=== PATIENT | female | born 1975 | race African-American/Black ===

== ENCOUNTER → 2017-10-02 | Outpatient (CLI) | payer OTHER | LOC: M LRY 19:09 | DX: S92.512A Displaced fracture of proximal phalanx of left lesser toe(s), initial encounter for closed fracture (principal) | CPT/HCPCS: 73630; G0463 ==

== ENCOUNTER → 2018-01-14 | Outpatient (CLI) | payer OTHER | LOC: M LRY 18:20 | DX: R05 Cough (principal); R06.02 Shortness of breath | CPT/HCPCS: 71046; G0463 ==

== ENCOUNTER 2019-01-08 13:32 | Emergency (ER) | payer OTHER ==
[~2019-01-08] VITALS: Ht 170.2 cm; Wt 140.9 kg
[~2019-01-08 13:32] MED LIST: IBUP80TA PO; MAPA500T17 PO; PRIL40CA PO
[2019-01-08] MEDS ORDERED: EXCETAB33 PO (13:38)
[2019-01-08] MEDS ORDERED: METHOCARBAMOL 750 MG TAB PO ONE (15:30)
--- NOTE | 2019-01-08 15:56 | REP ---
CT cervical spine: 01/08/2019. Indication: Neck pain. Comparison: None. Technique: Unenhanced axial CT images of the cervical spine were performed with coronal and sagittal reconstructions provided. Findings: The lower cervical spine is suboptimally evaluated secondary to quantum mottle artifact. There is no evidence of acute fracture, subluxation or dislocation. There is straightening of the cervical lordosis. The visualized lungs are clear. No areas of severe spinal canal narrowing are detected. The prevertebral and additional visualized soft tissues are unremarkable. Impression: No acute osseous injury of the cervical spine detected. Electronically Signed by Manny Aj DO 01/08/2019 03:47 P
[2019-01-08] MEDS ORDERED: ROBA750T4 PO (16:20)
[2019-01-08] MEDS ORDERED: NAPR-837 PO (16:20)
[2019-01-08 16:24] VITALS: BP 141/69
== END 2019-01-08 16:31 | disposition home or self-care (01) ==
LOC: M ED 13:32
DX: G44.209 Tension-type headache, unspecified, not intractable (principal); M54.12 Radiculopathy, cervical region; F17.210 Nicotine dependence, cigarettes, uncomplicated

== ENCOUNTER 2019-01-27 11:28 | Emergency (ER) | payer OTHER ==
[~2019-01-27] VITALS: Ht 170.2 cm; Wt 139.6 kg
[~2019-01-27 11:28] MED LIST changes: +EXCETAB33 PO; +NAPR-837 PO; +ROBA750T4 PO
[2019-01-27] MEDS ORDERED: METH750T2 (11:38)
[2019-01-27] MEDS ORDERED: BUSP5TA (11:38)
[2019-01-27] MEDS ORDERED: MELA3TAB41 (11:38)
[2019-01-27 14:07] LABS: BASO % 0.4 % (0.0-1.0); EOS # 0.1 10^3/uL (0.0-0.5); EOS % 1.2 % (0.0-3.0); HEMATOCRIT 42.5 % (36.0-47.0); HEMOGLOBIN 13.1 g/dl (12.0-15.5); LYMPH # 1.9 10^3/uL (1.5-5.0); LYMPH % 37.7 % (24.0-44.0); MEAN CORPUSCULAR HEMOGLOBIN 27.4 pg (27.0-33.0); MEAN CORPUSCULAR HGB CONC 30.8 g/dl (32.0-36.5); MEAN CORPUSCULAR VOLUME 88.9 fl (80.0-96.0); MONO # 0.4 10^3/uL (0.0-0.8); MONO % 8.2 % (0.0-5.0); NEUTROPHILS # 2.7 10^3/uL (1.5-8.5); NEUTROPHILS % 52.3 % (36.0-66.0); PLATELET COUNT, AUTOMATED 273 10^3/uL (150-450); RED BLOOD COUNT 4.78 10^6/uL (4.00-5.40); WHITE BLOOD COUNT 5.1 10^3/uL (4.0-10.0)
[2019-01-27 14:53] LABS: BLOOD UREA NITROGEN 13 MG/DL (7-18); CALCIUM LEVEL 9.3 MG/DL (8.5-10.1); CARBON DIOXIDE LEVEL 30 MEQ/L (21-32); CHLORIDE LEVEL 106 MEQ/L (98-107); CREATININE FOR GFR 0.95 MG/DL (0.55-1.30); GLOMERULAR FILTRATION RATE > 60.0 (>58); GLUCOSE, FASTING 107 MG/DL (70-100); MAGNESIUM LEVEL 2.2 MG/DL (1.8-2.4); POTASSIUM SERUM 4.3 MEQ/L (3.5-5.1); SODIUM LEVEL 140 MEQ/L (136-145); TOTAL 25(OH) VITAMIN D 17.2 NG/ML (30.0-100.0); VITAMIN B12 LEVEL 324 PG/ML (247-911)
[2019-01-27] MEDS ORDERED: VITATAB64 PO (15:38)
[2019-01-27] MEDS ORDERED: VITA200028 PO (15:38)
[2019-01-27 15:50] VITALS: BP 145/65
== END 2019-01-27 15:52 | disposition home or self-care (01) ==
LOC: M ED 11:28
DX: R20.2 Paresthesia of skin (principal); E55.9 Vitamin D deficiency, unspecified; E53.8 Deficiency of other specified B group vitamins; F41.9 Anxiety disorder, unspecified; Z79.899 Other long term (current) drug therapy; Z79.82 Long term (current) use of aspirin